=== PATIENT | male | born 1945 | race Caucasian/White ===

== ENCOUNTER → 2022-06-28 | Outpatient (CLI) | payer OTHER ==
[~2022-06-28] VITALS: Ht 182.9 cm; Wt 109.6 kg
[~2022-06-28] MED LIST: 0.9%NACL 1000ML 1,000 ML IV SCH; AEC81 PO; ATOR10TA69 PO; ATOR40TA71 PO; FURO40TA5 PO; LISI10TA24 PO; LISI5TAB21 PO; METF-444 PO; METO-408 PO; PARO-159 PO; TRAZ-185 PO
[2022-06-28 09:36] LABS: BASOPHILS % (AUTO) 0.3 % (0.0-5.0); HEMATOCRIT 47.6 % (42-54); LYMPHOCYTES % (AUTO) 10.7 % (21.0-51.0); MEAN CORPUSCULAR HEMOGLOBIN 31.1 pg (27.0-33.0); MEAN CORPUSCULAR HGB CONC 33.2 g/dL (32.0-36.0); MEAN CORPUSCULAR VOLUME 93.7 fL (79-99); MONOCYTES % (AUTO) 8.6 % (3.0-13.0); PLATELET COUNT (AUTO) 117 K/uL (130-400); RED BLOOD CELL COUNT(AUTO) 5.08 MIL/uL (4.50-6.20); RED CELL DISTRIBUTION WIDTH 13.8 % (11.0-15.5); WHITE BLOOD COUNT (AUTO) 10.2 K/uL (4.8-10.8)
[2022-06-28 09:37] LABS: APPEARANCE,URINE CLOUDY (CLEAR); BILIRUBIN,URINE 1 mg/dL (NEGATIVE); COLOR,URINE DARK-YELLOW (YELLOW); GLUCOSE, URINE (UA) NEGATIVE (NEGATIVE); KETONES,URINE NEGATIVE (NEGATIVE); LEUKOCYTE ESTERASE ,URINE NEGATIVE Leu/uL (NEGATIVE); NITRATE,URINE NEGATIVE (NEGATIVE); OCCULT BLOOD,URINE NEGATIVE (NEGATIVE); PROTEIN,URINE 100 mg/dL (NEGATIVE); UROBILINOGEN,URINE 6 mg/dL (0.2-1.0)
[2022-06-28 09:42] VITALS: BP 94/57
[2022-06-28 09:42] LABS: POTASSIUM 4.4 mmol/L (3.5-5.1)
[2022-06-28 09:48] LABS: INR 1.38 (0.85-1.15); PROTHROMBIN TIME 14.8 SEC (9.6-11.6)
[2022-06-28 09:49] LABS: PARTIAL THROMBOPLASTIN TIME 31.6 SEC (26.3-35.5)
[2022-06-28 09:52] LABS: BACTERIA,URINE FEW /HPF (None Seen); HYALINE CASTS, URINE >100 /LPF (0-1 /LPF); MUCUS,URINE RARE LPF (None Seen); OTHER CASTS, URINE 5 /LPF (None Seen); SQUAMOUS EPITHELIAL CELL,UR RARE /HPF (0-2)
[2022-06-28 10:02] LABS: B-TYPE NATRIURETIC PEPTIDE 1120 pg/mL (0-100)
== END | disposition home or self-care (01) ==
LOC: EDSTATUS 08:00 → DAH 10:00
PROVIDERS: ATTEND Internal Medicine
DX: Z01.810 Encounter for preprocedural cardiovascular examination (principal); T82.857A Stenosis of other cardiac prosthetic devices, implants and grafts, initial encounter; I50.20 Unspecified systolic (congestive) heart failure; I49.1 Atrial premature depolarization; I25.2 Old myocardial infarction; Y83.8 Other surgical procedures as the cause of abnormal reaction of the patient, or of later complication, without mention of misadventure at the time of the procedure
CPT/HCPCS: 36415; 71045; 80048; 81001; 83880; 85025; 85610; 85730; 93005